=== PATIENT | female | born 1930 | race Asian ===

== ENCOUNTER 2016-11-13 03:01 | Inpatient (IN) | payer OTHER ==
[~2016-11-13] VITALS: Ht 147.3 cm; Wt 47.3 kg
[2016-11-13 03:01] VITALS: BP_SYST 146
[2016-11-13] MEDS ORDERED: IPRATROPIUM/ALBUTEROL SULFATE 3 ML AMPUL.NEB INH ONE ×3 (03:15→05:45)
[2016-11-13] MEDS ORDERED: NACL 0.9% 1,000 ML IV ONE (03:15)
[2016-11-13] MEDS ORDERED: MAGNESIUM SULFATE 50 ML IV ONE (03:15)
[2016-11-13] MEDS ORDERED: NS 500 ML IV ONE (03:15)
[2016-11-13] MEDS ORDERED: methylPREDNISolone SOD SUCC/PF 62.5 MG/ML VIAL IVP ONE (03:15)
[2016-11-13] MEDS ORDERED: IPRATROPIUM/ALBUTEROL SULFATE 3 ML AMPUL.NEB ONE ×2 (03:21→06:11)
[2016-11-13 03:48] LABS: BASOPHILS # (AUTO) 0.1 K/uL (0.0-0.2); BASOPHILS % (AUTO) 1.1 % (0.0-2.0); HEMOGLOBIN 14.4 g/dL (12.0-16.0); LYMPHOCYTES # (AUTO) 2.7 K/uL (1.0-5.5); MEAN CORPUSCULAR HEMOGLOBIN 32 pg (27-31); MEAN CORPUSCULAR HGB CONC 33 % (32-36); MEAN CORPUSCULAR VOLUME 98 fL (79.0-98.0); MONOCYTES # (AUTO) 0.5 K/uL (0.0-1.0); MONOCYTES % (AUTO) 7.2 % (1.7-9.3); NEUTROPHILS # (AUTO) 2.3 K/uL (1.8-7.7); NEUTROPHILS % (AUTO) 34.7 % (40.0-70.0); PLATELET COUNT (AUTO) 179 K/uL (130-430); RED BLOOD CELL COUNT(AUTO) 4.51 MIL/uL (4.2-6.2); RED CELL DISTRIBUTION WIDTH 13.1 % (9.0-15.0); WHITE BLOOD COUNT (AUTO) 6.6 K/uL (4.8-10.8)
[2016-11-13] MEDS ORDERED: UMEC1BLS IH (03:50)
[2016-11-13] MEDS ORDERED: ALBU8.5H8 INH (03:50)
[2016-11-13 03:59] LABS: ANION GAP 9 (5-15); CALCIUM 8.8 mg/dL (8.4-11.0); CHLORIDE 105 mmol/L (98-107); CREATININE 1.05 mg/dL (0.55-1.30); GLUCOSE 243 mg/dL (70-99); SODIUM SERUM 142 mmol/L (136-145); UREA NITROGEN, BLOOD 16 mg/dL (8-21)
[2016-11-13 04:05] LABS: ALANINE AMINOTRANSFERASE 64 U/L (12-78); ALBUMIN 3.7 g/dL (3.4-4.8); ASPARTATE AMINOTRANSFERASE 41 U/L (10-37); TOTAL BILIRUBIN 0.7 mg/dL (0.0-1.0)
[2016-11-13] MEDS ORDERED: ALBUTEROL SULFATE 0.083% 2.5 MG/3 ML VIAL.NEB INH PRN (06:00)
[2016-11-13] MEDS ORDERED: IPRATROPIUM BROM 0.5 MG/2.5 ML VIAL.NEB (ATROVENT) INH PRN (06:00)
[2016-11-13 06:36] VITALS: BP_SYST 135
[2016-11-13 08:32] VITALS: BP_SYST 124
[2016-11-13] MEDS: ENOXAPARIN SODIUM 40 MG/0.4 ML SYRINGE SUBCUT SCH (10:00)
[2016-11-13] MEDS: ASPIRIN 325 MG TABLET (ECOTRIN) PO SCH (10:01)
[2016-11-13] MEDS: METOPROLOL TARTRATE 25 MG TABLET PO SCH (10:02)
[2016-11-13 12:22] VITALS: BP_SYST 112
[2016-11-13] MEDS: FUROSEMIDE 40 MG/4 ML VIAL IVP SCH (13:04)
[2016-11-13 13:07] VITALS: BP_SYST 164
[2016-11-13 16:19] VITALS: BP_SYST 119
[2016-11-14 00:20] VITALS: BP_SYST 117
[2016-11-14 03:54] VITALS: BP_SYST 107
[2016-11-14] MEDS ORDERED: methylPREDNISolone SOD SUCC/PF 62.5 MG/ML VIAL IVP ONE (08:00)
[2016-11-14 08:10] VITALS: BP_SYST 125
[2016-11-14] MEDS: ENOXAPARIN SODIUM 40 MG/0.4 ML SYRINGE SUBCUT SCH (08:54)
[2016-11-14] MEDS: FUROSEMIDE 40 MG/4 ML VIAL IVP SCH (08:55)
[2016-11-14] MEDS: ASPIRIN 325 MG TABLET (ECOTRIN) PO SCH (08:55)
[2016-11-14] MEDS: METOPROLOL TARTRATE 25 MG TABLET PO SCH (08:56)
[2016-11-14] MEDS: cefTRIAXone 1 GM IVPB PREMIX 50 ML IV SCH (11:35)
[2016-11-14 12:40] VITALS: BP_SYST 120
[2016-11-14] MEDS: AZITHROMYCIN 250 MG in NS 250 ML IV SCH (13:35)
[2016-11-14] MEDS: methylPREDNISolone SOD SUCC/PF 62.5 MG/ML VIAL IVP SCH ×2 (14:00→21:58)
[2016-11-14 16:17] VITALS: BP_SYST 109
[2016-11-14 20:00] VITALS: BP_SYST 132
[2016-11-15] VITALS: BP_SYST 101
[2016-11-15 04:00] VITALS: BP_SYST 105
[2016-11-15] MEDS: methylPREDNISolone SOD SUCC/PF 62.5 MG/ML VIAL IVP SCH (05:38)
[2016-11-15] MEDS: BUDESONIDE 0.5 MG/2 ML AMPUL.NEB INH SCH ×2 (07:00→19:59)
[2016-11-15 08:00] VITALS: BP_SYST 134
[2016-11-15] MEDS: ENOXAPARIN SODIUM 40 MG/0.4 ML SYRINGE SUBCUT SCH (09:19)
[2016-11-15] MEDS: METOPROLOL TARTRATE 25 MG TABLET PO SCH (09:20)
[2016-11-15] MEDS: ASPIRIN 325 MG TABLET (ECOTRIN) PO SCH (09:21)
[2016-11-15] MEDS: cefTRIAXone 1 GM IVPB PREMIX 50 ML IV SCH (09:22)
[2016-11-15 10:31] LABS: ANION GAP 8 (5-15); CALCIUM 9.1 mg/dL (8.4-11.0); CHLORIDE 102 mmol/L (98-107); CREATININE 0.93 mg/dL (0.55-1.30); GLUCOSE 175 mg/dL (70-99); POTASSIUM 3.9 mmol/L (3.5-5.1); SODIUM SERUM 137 mmol/L (136-145); UREA NITROGEN, BLOOD 33 mg/dL (8-21)
[2016-11-15] MEDS ORDERED: IOHEXOL 100 ML IV ONE (11:29)
[2016-11-15] MEDS: AZITHROMYCIN 250 MG in NS 250 ML IV SCH (11:56)
[2016-11-15 12:16] VITALS: BP_SYST 109
[2016-11-15] MEDS: IPRATROPIUM BROM 0.5 MG/2.5 ML VIAL.NEB (ATROVENT) INH SCH ×3 (13:05→19:43)
[2016-11-15] MEDS: ALBUTEROL SULFATE 0.083% 2.5 MG/3 ML VIAL.NEB INH SCH ×3 (13:05→19:43)
[2016-11-15 16:22] VITALS: BP_SYST 115
[2016-11-15] MEDS: methylPREDNISolone SOD SUCC 40 MG/ML VIAL IVP SCH (21:47)
[2016-11-15 21:49] VITALS: BP_SYST 116
[2016-11-16] MEDS: IPRATROPIUM BROM 0.5 MG/2.5 ML VIAL.NEB (ATROVENT) INH SCH ×3 (01:13→13:46)
[2016-11-16] MEDS: ALBUTEROL SULFATE 0.083% 2.5 MG/3 ML VIAL.NEB INH SCH ×3 (01:13→13:46)
[2016-11-16 01:18] VITALS: BP_SYST 101
[2016-11-16 08:00] VITALS: BP_SYST 128
[2016-11-16] MEDS: BUDESONIDE 0.5 MG/2 ML AMPUL.NEB INH SCH (08:28)
[2016-11-16 08:39] LABS: ANION GAP 12 (5-15); CALCIUM 8.8 mg/dL (8.4-11.0); CHLORIDE 104 mmol/L (98-107); CREATININE 0.98 mg/dL (0.55-1.30); GLUCOSE 136 mg/dL (70-99); SODIUM SERUM 142 mmol/L (136-145); UREA NITROGEN, BLOOD 30 mg/dL (8-21)
[2016-11-16] MEDS: cefTRIAXone 1 GM IVPB PREMIX 50 ML IV SCH (09:13)
[2016-11-16] MEDS: ASPIRIN 325 MG TABLET (ECOTRIN) PO SCH (09:13)
[2016-11-16] MEDS: METOPROLOL TARTRATE 25 MG TABLET PO SCH (09:14)
[2016-11-16] MEDS: ENOXAPARIN SODIUM 40 MG/0.4 ML SYRINGE SUBCUT SCH (09:15)
[2016-11-16] MEDS: methylPREDNISolone SOD SUCC 40 MG/ML VIAL IVP SCH (09:15)
[2016-11-16] MEDS: AZITHROMYCIN 250 MG in NS 250 ML IV SCH (10:12)
[2016-11-16 12:04] VITALS: BP_SYST 96
[2016-11-16] MEDS ORDERED: DOXY-4 PO (12:39)
[2016-11-16] MEDS ORDERED: METO25TA3 PO (12:40)
[2016-11-16] MEDS ORDERED: ALBU2.5V7 INH (12:41)
[2016-11-16 14:09] VITALS: BP_SYST 96
== END 2016-11-16 15:00 | disposition home or self-care (01) | DRG 280 ==
LOC: SED 03:01 → STU 05:11
DX: I21.4 Non-ST elevation (NSTEMI) myocardial infarction (principal); I50.33 Acute on chronic diastolic (congestive) heart failure; J44.1 Chronic obstructive pulmonary disease with (acute) exacerbation; I27.2 Other secondary pulmonary hypertension; J45.901 Unspecified asthma with (acute) exacerbation; I08.3 Combined rheumatic disorders of mitral, aortic and tricuspid valves; I11.0 Hypertensive heart disease with heart failure; I45.10 Unspecified right bundle-branch block; E78.5 Hyperlipidemia, unspecified; Z87.891 Personal history of nicotine dependence; Z79.899 Other long term (current) drug therapy
CPT/HCPCS: 36415; 36600; 71010; 71275; 80048; 80053; 82803-TC; 83880; 84484; 85025; 85379; 85610-TC; 85730-TC; 87040-TC; 93005; 93306; 94640; 96374; 99285; J0456; J0696; J1030; J1650; J1940; J2930; J3475; J7030; J7050; Q9967

== ENCOUNTER 2017-12-22 04:37 | Emergency (ER) | payer OTHER ==
[~2017-12-22] VITALS: Ht 152.4 cm; Wt 45.4 kg
[~2017-12-22 04:37] MED LIST: ALBU8.5H8 INH; ASPI-1153 PO; AZIT500T2 PO; LIP10 PO; METH4TAB3 PO; METO25TA6 PO; UMEC1BLS IH
[2017-12-22 04:40] VITALS: BP_SYST 159
[2017-12-22 05:30] LABS: BASOPHILS # (AUTO) 0.1 K/uL (0.0-0.2); BASOPHILS % (AUTO) 1.2 % (0.0-2.0); EOSINOPHILS # (AUTO) 0.6 K/uL (0.0-0.4); EOSINOPHILS % (AUTO) 10.6 % (0.0-4.0); HEMATOCRIT 45.5 % (36-48); HEMOGLOBIN 14.9 g/dL (12.0-16.0); LYMPHOCYTES # (AUTO) 1.3 K/uL (1.0-5.5); LYMPHOCYTES % (AUTO) 25.1 % (20.5-51.5); MEAN CORPUSCULAR HEMOGLOBIN 33 pg (27-31); MEAN CORPUSCULAR HGB CONC 33 % (32-36); MEAN CORPUSCULAR VOLUME 99 fL (79.0-98.0); MONOCYTES # (AUTO) 0.5 K/uL (0.0-1.0); NEUTROPHILS # (AUTO) 2.8 K/uL (1.8-7.7); NEUTROPHILS % (AUTO) 54.1 % (40.0-70.0); PLATELET COUNT (AUTO) 147 K/uL (130-430); RED BLOOD CELL COUNT(AUTO) 4.58 MIL/uL (4.2-6.2); RED CELL DISTRIBUTION WIDTH 12.8 % (9.0-15.0); WHITE BLOOD COUNT (AUTO) 5.3 K/uL (4.8-10.8)
[2017-12-22 06:07] LABS: ANION GAP 9 (5-15); CHLORIDE 105 mmol/L (98-107); CREATININE 0.67 mg/dL (0.55-1.30); GLUCOSE 93 mg/dL (70-99); POTASSIUM 3.9 mmol/L (3.5-5.1); UREA NITROGEN, BLOOD 14 mg/dL (8-21)
[2017-12-22 06:14] LABS: INR 1.1 (0.8-1.2); PROTHROMBIN TIME 10.9 SECS (9.5-12.5)
[2017-12-22 06:17] LABS: ALANINE AMINOTRANSFERASE 20 U/L (12-78); ALBUMIN 3.6 g/dL (3.4-4.8); ASPARTATE AMINOTRANSFERASE 22 U/L (10-37); TOTAL BILIRUBIN 0.9 mg/dL (0.0-1.0)
[2017-12-22 06:19] LABS: SODIUM SERUM 141 mmol/L (136-145)
[2017-12-22] MEDS ORDERED: ALBUTEROL SULFATE 0.083% 2.5 MG/3 ML VIAL.NEB INH ONE (08:45)
[2017-12-22 09:27] VITALS: BP_SYST 138
== END 2017-12-22 09:27 | disposition home or self-care (01) ==
LOC: SED 04:37
DX: J44.9 Chronic obstructive pulmonary disease, unspecified (principal); Z79.899 Other long term (current) drug therapy
CPT/HCPCS: 36415; 71045; 80053; 83605; 83880; 84484; 85025; 85379; 85610; 85730; 87040; 94640; 99285; J7613